=== PATIENT | female | born 1955 | race African-American/Black ===

== ENCOUNTER 2019-07-18 20:40 | Observation (INO) | payer OTHER, SELFPAY ==
[2019-07-18] MEDS ORDERED: HYDROcodone/Acetaminophen 5/325 mg Tablet ONE (21:21)
[2019-07-18] MEDS ORDERED: Ketorolac Tromethamine 30 MG/ML VIAL ONE (21:21)
[2019-07-18] MEDS ORDERED: Cyclobenzaprine 10 MG TAB PO PRN (23:24)
[2019-07-18] MEDS ORDERED: traMADol HCl 50 MG TAB PO PRN (23:24)
[2019-07-18] MEDS ORDERED: Ondansetron PF 4 MG/2 ML Vial IVP PRN (23:24)
[2019-07-18] MEDS ORDERED: Dextrose 50% Abboject 50 ML SYRINGE SLOW IVP PRN (23:24)
[2019-07-18] MEDS ORDERED: Ondansetron ODT 4 MG TAB PO PRN (23:24)
[2019-07-18] MEDS ORDERED: Dextrose 5% in Water 1,000 ML IV PRN (23:24)
[2019-07-18 23:29] VITALS: BMI 35.2
--- NOTE | 2019-07-18 23:33 | HP ---
This is Edgard Mondragon PA-C dictating a report for Dr. Lew. REQUESTING PHYSICIAN: Dr. Jeevan Choudhury. ATTENDING SURGEON: Dr. Lew. HISTORY OF PRESENT ILLNESS: The patient is a 64-year-old woman who was walking at a restaurant when she tripped and fell on the sidewalk, landed on the left side of her chest and her left hand. She was initially taken to the emergency room in [place], where she underwent evaluation and examination and was noted to have nondisplaced rib fractures of left ribs 3 through 7. She was subsequently transferred to our facility for admission for observation and pain control. The patient denied any loss of consciousness. Her pain was controlled in [place] with morphine. Here, she has received Toradol and one [place]. ALLERGIES: NONE. CURRENT MEDICATIONS: Metformin and valsartan-hydrochlorothiazide. PAST MEDICAL HISTORY: Type 2 diabetes, hypertension, "early kidney disease." PAST SURGICAL HISTORY: Hysterectomy. SOCIAL HISTORY: The patient quit smoking greater than 15 years ago. She denies drug or alcohol use. 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 REVIEW OF SYSTEMS: A 10-point review of systems is negative except as otherwise stated. PHYSICAL EXAMINATION: VITAL SIGNS: Blood pressure 116/79, heart rate 85, respirations 18, oxygen saturation is 96% on room air, and temperature is 98.0. GENERAL: The patient is resting comfortably in bed. She is awake, alert, and oriented x3. [place] Coma Scale is 15. HEENT: Head is normocephalic, atraumatic. Eyes, extraocular motions intact. PERRLA bilaterally. Ears are atraumatic without discharge. Nose atraumatic without discharge. Oropharynx is clear. Lower lip at the midline has a small laceration that is scabbed over and also small contusion to her chin. The patient denies any malocclusion. Her dentition appears intact. NECK: Nontender. Trachea is midline. No JVD. CHEST: Clear to auscultation with good inspiratory and expiratory effort. HEART: Regular rate and rhythm. ABDOMEN: Soft, flat, nontender with active bowel sounds. EXTREMITIES: Neurovascularly intact x4. PELVIS: Stable. BACK: Atraumatic and nontender. The patient does have left-sided chest wall pain consistent with her fractures. LABORATORY FINDINGS: White blood cell count 11.6, hemoglobin 14.5, hematocrit 48.2, platelets 382. Sodium 143, potassium 3.7, chloride 103, CO2 of 26, BUN 16, creatinine 1.47, glucose 149, total bilirubin 0.7, AST 96, ALT 83, alkaline phosphatase 100. PT 13, INR 1.0. RADIOGRAPHIC REPORTS: CT of the chest without contrast shows nondisplaced left 3rd through 7th rib fractures and diffuse fatty change of the liver. Views of the left hand show no acute fracture dislocation. ASSESSMENT AND PLAN: 1. Status post ground level fall. 2. Left ribs 3 through 7 nondisplaced fractures. 3. Contusion to left hand and face. 4. Acute on chronic kidney injury. 5. Transaminitis, likely related to fatty liver disease. 6. Acute pain secondary to trauma. 7. History of diabetes and hypertension. PLAN: Will be to admit the patient for observation, pain control to the surgical floor. She well have pain control, pulmonary toilet, gastritis, and mechanical VTE prophylaxis. The patient will likely be able to be discharged home tomorrow. The evaluation, examination, laboratory, and radiographic findings were discussed with Dr. Lew after this dictation. Job ID: [id number]
[2019-07-18] MEDS ORDERED: Sodium Chloride 0.9% 1,000 ML IV SCH (23:45)
[2019-07-19] MEDS: Acetaminophen 325 MG TAB PO SCH ×2 (00:26→05:14)
[2019-07-19] MEDS: traMADol HCl 50 MG TAB PO SCH ×3 (00:26→12:20)
[2019-07-19] MEDS ORDERED: Ibuprofen 800 MG TAB PO SCH (06:00)
[2019-07-19] MEDS: Acetaminophen 500 MG TAB PO SCH ×2 (08:28→15:10)
[2019-07-19] MEDS ORDERED: Gabapentin 100 MG CAP PO SCH (09:00)
[2019-07-19 11:24] VITALS: BP 118/79; TEMP 97.7
--- NOTE | 2019-07-19 17:59 | DIS ---
DATE OF ADMISSION: 07/18/2019 DATE OF DISCHARGE: 07/19/2019 ADMISSION DIAGNOSES: 1. Status post ground level fall. 2. Left rib fracture. 3. Acute on chronic kidney disease. 4. History of hypertension and diabetes. DISCHARGE DIAGNOSES: 1. Status post ground level fall. 2. Left rib fracture, conservative treatment, stable. 3. Acute on chronic kidney injury, stable. History of diabetes and hypertension. CONSULTING PHYSICIAN: None. PROCEDURE: None. HOSPITAL COURSE: Ms. Oconnell is a 64-year-old female who is status post ground level fall. She sustained left rib fracture. She was unable to go home yesterday due to transportation difficulty. She has been admitted for observation, pain control. The patient reports no overnight event. Vital signs stable. The patient is able to cough . The patient's pain is well controlled. PHYSICAL EXAMINATION: GENERAL: Currently, the patient lying in bed comfortable with no acute respiratory distress. VITAL SIGNS: Temperature 97.7, heart rate 73, respiratory rate 18, O2 saturation 99% on room air, blood pressure 118/79. LUNGS: Clear bilaterally. HEART: Regular rate and rhythm. ABDOMEN: Soft, nondistended. EXTREMITIES: Neurovascularly intact x4. DISCHARGE DISPOSITION: Home. DISCHARGE CONDITION: Good. DISCHARGE INSTRUCTIONS: The patient is to take medication as directed. The patient is encouraged walking regularly. The patient is to use spirometry, pulmonary toilet every hour. The patient is to see Dr. Nina on 07/29 at 2 p.m. with chest x-ray. DISCHARGE MEDICATIONS: 1. Tylenol. 2. Ibuprofen. 3. Tramadol. Job ID: [id number]
== END 2019-07-19 15:05 | disposition home or self-care (01) ==
LOC: ERS 20:40 → SURG A 22:04
PROVIDERS: ADMIT Surgery; ATTEND Surgery
DX: S22.42XA Multiple fractures of ribs, left side, initial encounter for closed fracture (principal); S60.222A Contusion of left hand, initial encounter; S00.83XA Contusion of other part of head, initial encounter; G89.11 Acute pain due to trauma; I12.9 Hypertensive chronic kidney disease with stage 1 through stage 4 chronic kidney disease, or unspecified chronic kidney disease; E11.22 Type 2 diabetes mellitus with diabetic chronic kidney disease; N18.9 Chronic kidney disease, unspecified; N17.9 Acute kidney failure, unspecified; R74.0 Nonspecific elevation of levels of transaminase and lactic acid dehydrogenase [LDH]; Z87.891 Personal history of nicotine dependence; Z79.84 Long term (current) use of oral hypoglycemic drugs; Z79.899 Other long term (current) drug therapy; W01.0XXA Fall on same level from slipping, tripping and stumbling without subsequent striking against object, initial encounter
CPT/HCPCS: 94640; 96361; 96374; G0378; J1885; J7620